=== PATIENT | female | born 1975 | race Caucasian/White ===

== ENCOUNTER → 2016-04-27 | Outpatient (CLI) | payer OTHER ==
--- NOTE | 2016-04-27 11:58 | MR ---
MRI of the brain without contrast HISTORY-seizure COMPARISON: 05/14/2012. TECHNIQUE: T1-weighted sagittal, T2, FLAIR, and diffusion axial, and T2 coronal coronal views of the brain are submitted. FINDINGS: There is no evidence of acute ischemia. The ventricles, basal cisterns, and sulci overlying the convexities are consistent with the patient's age. There is no mass effect . The craniocervical junction is maintained. Sella turcica is maintained. Changes of mild chronic sinus itis noted. . IMPRESSION: 1. No acute intracranial process
== END | disposition home or self-care (01) ==
LOC: RADMRIMAIN 09:18
PROVIDERS: ATTEND Psychiatry & Neurology Neurology
DX: Z09 Encounter for follow-up examination after completed treatment for conditions other than malignant neoplasm (principal); Z86.69 Personal history of other diseases of the nervous system and sense organs
CPT/HCPCS: 70551